=== PATIENT | male | born 1960 | race Two or more races ===

== ENCOUNTER 2018-11-09 20:32 | Emergency (ER) | payer SELFPAY ==
[~2018-11-09] VITALS: Ht 162.6 cm; Wt 64.0 kg
[2018-11-10 02:39] LABS: BASOPHILS % 0.4 % (0.0-2.0); EOSINOPHILS % 0.1 % (0.0-5.0); HEMATOCRIT. 45.3 % (42.0-52.0); HEMOGLOBIN. 15.5 g/dL (14.0-18.0); LYMPHOCYTES % 10.7 % (20.0-50.0); MEAN CORPUSCULAR HEMOGLOBIN 31.2 pg (28.0-32.0); MEAN CORPUSCULAR VOLUME 91.4 fL (80.0-94.0); MEAN PLATELET VOLUME 9.7 fl (7.4-10.4); MONOCYTES % 11.4 % (2.0-8.0); NEUTROPHILS % 77.4 % (40.0-76.0); PLATELET 167 x1000/uL (130-400); RED BLOOD CELL COUNT 4.95 mill/uL (4.7-6.1); RED CELL DISTRIBUTION WIDTH 17.6 % (11.6-14.6)
[2018-11-10 02:46] LABS: CHLORIDE 94 mEq/L (98-107)
[2018-11-10] MEDS ORDERED: CHLORDIAZEPOXIDE 25MG CAPSULE PO ONE (03:30)
[2018-11-10 06:11] VITALS: BP 136/84
== END 2018-11-10 06:28 | disposition home or self-care (01) ==
LOC: ER 20:32
DX: F10.20 Alcohol dependence, uncomplicated (principal); Y90.9 Presence of alcohol in blood, level not specified; F17.210 Nicotine dependence, cigarettes, uncomplicated
CPT/HCPCS: 36415; 80053; 84484; 85025; 99283; 99406; Z7610

== ENCOUNTER 2020-04-12 14:15 | Emergency (ER) | payer MEDICAID ==
[~2020-04-12] VITALS: Ht 170.2 cm; Wt 70.0 kg
[2020-04-12 14:17] VITALS: BP 123/86
[2020-04-12] MEDS ORDERED: SODIUM CHLORIDE 0.9% 1,000 ML IV ONE (15:00)
== END 2020-04-12 17:15 | disposition home or self-care (01) ==
LOC: ER 14:15
DX: F10.229 Alcohol dependence with intoxication, unspecified (principal); Y90.0 Blood alcohol level of less than 20 mg/100 ml
CPT/HCPCS: 99283

== ENCOUNTER 2021-07-16 07:41 | Inpatient (IN) | payer MEDICAID ==
[~2021-07-16] VITALS: Ht 162.6 cm; Wt 59.4 kg
[2021-07-16] VITALS (28 sets, daily range): BP systolic 69–135; BP diastolic 46–92
[2021-07-16 08:38] LABS: BASOPHILS % 0.9 % (0.0-2.0); EOSINOPHILS % 4.7 % (0.0-5.0); HEMATOCRIT. 41.1 % (42.0-52.0); LYMPHOCYTES % 13.5 % (20.0-50.0); MEAN CORPUSCULAR HEMOGLOBIN 28.5 pg (28.0-32.0); MEAN CORPUSCULAR VOLUME 83.6 fL (80.0-94.0); MEAN PLATELET VOLUME 9.1 fl (7.4-10.4); MONOCYTES % 8.7 % (2.0-8.0); NEUTROPHILS % 72.2 % (40.0-76.0); PLATELET 259 x1000/uL (130-400); RED BLOOD CELL COUNT 4.91 mill/uL (4.7-6.1)
[2021-07-16 08:44] LABS: CHLORIDE 98 mEq/L (98-107)
[2021-07-16 10:16] LABS: INR 1.2; PROTHROMBIN TIME 12.7 sec (9.6-11.0)
[2021-07-16] MEDS ORDERED: DEXAMETHASONE 4MG/ML 1ML VIAL IV ONE (11:45)
[2021-07-16] MEDS ORDERED: MORPHINE SULFATE 2 MG/ML CPJ (NOT FOR IM USE) IV ONE (11:45)
[2021-07-16] MEDS ORDERED: THROMBIN (BOVINE) 5000 UNITS/VIAL TOP ONE (11:59)
[2021-07-16] MEDS ORDERED: GENTAMICIN SULF 40MG/ML 2ML VIAL ONE (11:59)
[2021-07-16] MEDS ORDERED: LIDOCAINE HCL/EPINEPHRINE 1%-EPI 1:100,000 30 ML VIAL INFIL ONE (11:59)
[2021-07-16] MEDS ORDERED: SODIUM CHLORIDE 0.9% 2,000 ML ONE (11:59)
[2021-07-16] MEDS ORDERED: SODIUM CHLORIDE 0.9% INJ 10ML FLUSH IVF ONE (11:59)
[2021-07-16] MEDS ORDERED: LACTATED RINGERS 3,000 ML IV ONE (12:00)
[2021-07-16] MEDS ORDERED: ROCURONIUM BROMIDE 10MG/ML VIAL 5ML IV ONE (12:41)
[2021-07-16] MEDS ORDERED: MIDAZOLAM HCL 2 MG/2 ML VIAL ONE (12:41)
[2021-07-16] MEDS ORDERED: NEOSTIGMINE METHYLSULFATE 1MG/ML 10 ML VIAL ONE (12:41)
[2021-07-16] MEDS ORDERED: FENTANYL CITRATE/PF 50MCG/ML 2ML VIAL ONE (12:41)
[2021-07-16] MEDS ORDERED: GLYCOPYRROLATE 0.2 MG/ML 2ML VIAL ONE ×2 (12:41→14:34)
[2021-07-16] MEDS ORDERED: PROPOFOL 200MG/20ML VIAL IV ONE (12:41)
[2021-07-16] MEDS ORDERED: ONDANSETRON HCL 4MG/2ML INJ ONE (13:17)
[2021-07-16] MEDS ORDERED: DEXAMETHASONE 4MG/ML 1ML VIAL ONE (13:17)
[2021-07-16] MEDS ORDERED: CEFAZOLIN SODIUM 1000MG/VIAL ONE (13:34)
[2021-07-16] MEDS ORDERED: LIDOCAINE HCL/PF 1% 10 MG/ML 5ML VIAL ONE (13:34)
[2021-07-16] MEDS ORDERED: SODIUM CHLORIDE 0.9% 10ML VIAL ONE (13:34)
[2021-07-16] MEDS ORDERED: MEPERIDINE HCL/PF 25MG/ML CPJ IV PRN (13:45)
[2021-07-16] MEDS ORDERED: ONDANSETRON HCL 4MG/2ML INJ IV PRN (13:45)
[2021-07-16] MEDS ORDERED: NICARDIPINE 100 MG in SODIUM CHLORIDE 0.9% 60 ML IV PRN ×2 (14:45→15:00)
[2021-07-16] MEDS: LABETALOL 5MG/ML SYR 20 MG/4 ML SYRINGE IV PRN ×2 (14:54→15:16)
[2021-07-16] MEDS ORDERED: MAGNESIUM/ALUMINUM HYDROXIDE/SIMETHICONE 30ML UDC PO PRN (15:15)
[2021-07-16] MEDS ORDERED: DEXTROSE 50% WATER 50ML SYRINGE IV PRN (15:15)
[2021-07-16] MEDS ORDERED: NALOXONE HCL 0.4MG/ML VIAL IV PRN (15:15)
[2021-07-16] MEDS: HYDROMORPHONE HCL/PF 2MG/ML CPJ IV PRN ×2 (15:34→16:05)
[2021-07-16] MEDS ORDERED: VANCOMYCIN 750MG PREMIX 150 ML IV SCH (16:00)
[2021-07-16] MEDS: DEXT 5%/LACTATED RINGERS 1,000 ML IV SCH (16:04)
[2021-07-16] MEDS: BLOOD SUGAR DIAGNOSTIC STRIP TEST SCH ×2 (17:00→20:29)
[2021-07-16] MEDS: MORPHINE SULFATE 4 MG/ML CPJ (NOT FOR IM USE) IV PRN ×2 (18:16→21:28)
[2021-07-16] MEDS: INSULIN LISPRO 100 UNITS/ML SUBCUT SCH ×2 (19:12→20:33)
[2021-07-16] MEDS: VANCOMYCIN 750 MG in DEXT 5% WATER 250 ML IV SCH (20:23)
[2021-07-17] VITALS (97 sets, daily range): BP systolic 63–143; BP diastolic 20–94
[2021-07-17] MEDS: DEXT 5%/LACTATED RINGERS 1,000 ML IV SCH ×2 (01:06→09:40)
[2021-07-17] MEDS: MORPHINE SULFATE 4 MG/ML CPJ (NOT FOR IM USE) IV PRN ×3 (01:06→18:35)
[2021-07-17 01:12] LABS: CLARITY URINE CLOUDY (CLEAR); COLOR URINE YELLOW (YELLOW); KETONES URINE NEGATIVE (NEGATIVE); LEUKOCYTE ESTERASE URINE 2+ (NEGATIVE); NITRITE URINE NEGATIVE (NEGATIVE); OCCULT BLOOD URINE 3+ (NEGATIVE); PH URINE 5.5 (4.5-8.0); PROTEIN URINE NEGATIVE (NEGATIVE); SPECIFIC GRAVITY URINE 1.022 (1.005-1.030); UROBILINOGEN URINE 0.2 E.U./dL (0.2-1.0)
[2021-07-17 01:43] LABS: *AMPHETAMINES SCREEN URINE NEGATIVE (NEGATIVE); *BARBITURATES SCREEN URINE NEGATIVE (NEGATIVE); *BENZODIAZEPINES SCREEN URINE PRESUMTIVE POSITIVE (NEGATIVE); *COCAINE SCREEN URINE NEGATIVE (NEGATIVE); METHADONE URINE SCREEN NEGATIVE (NEGATIVE); OPIATES URINE SCREEN PRESUMTIVE POSITIVE (NEGATIVE)
[2021-07-17 01:44] LABS: CANNABINOID URINE SCREEN NEGATIVE (NEGATIVE); PHENCYCLIDINE URINE SCREEN NEGATIVE (NEGATIVE)
[2021-07-17] MEDS: VANCOMYCIN 750 MG in DEXT 5% WATER 250 ML IV SCH ×3 (03:21→20:56)
[2021-07-17] MEDS: BLOOD SUGAR DIAGNOSTIC STRIP TEST SCH ×4 (05:48→20:52)
[2021-07-17 06:10] LABS: CHLORIDE 100 mEq/L (98-107)
[2021-07-17 06:13] LABS: HEMATOCRIT. 33.3 % (42.0-52.0); HEMOGLOBIN. 11.3 g/dL (14.0-18.0); MEAN CORPUSCULAR HEMOGLOBIN 28.7 pg (28.0-32.0); MEAN CORPUSCULAR VOLUME 84.5 fL (80.0-94.0); MEAN PLATELET VOLUME 9.2 fl (7.4-10.4); PLATELET 212 x1000/uL (130-400); RED BLOOD CELL COUNT 3.94 mill/uL (4.7-6.1); RED CELL DISTRIBUTION WIDTH 14.1 % (11.6-14.6)
[2021-07-17 06:19] LABS: PHOSPHORUS 2.9 mg/dL (2.5-4.9)
[2021-07-17 06:21] LABS: T4 FREE 1.82 ng/dL (0.76-1.46)
[2021-07-17] MEDS: INSULIN LISPRO 100 UNITS/ML SUBCUT SCH ×4 (06:30→20:58)
[2021-07-17] MEDS: OMEPRAZOLE 20MG CAPSULE EXTENDED RELEASE PO SCH (06:30)
[2021-07-17] MEDS: HYDROCODONE/ACETAMINOPHEN 5/325MG TABLET PO PRN ×4 (06:53→20:59)
[2021-07-17] MEDS: MULTIVITAMINS,THER W-MINERALS TABLET PO SCH (08:15)
[2021-07-17] MEDS: FOLIC ACID 1MG TABLET PO SCH (08:15)
[2021-07-17] MEDS: THIAMINE HCL 100MG TABLET PO SCH (08:15)
[2021-07-17 10:52] LABS: PLATELET ESTIMATE NORMAL
[2021-07-17] MEDS ORDERED: GADOTERATE MEGLUMINE 5 MMOL/10 ML VIAL IV ONE (12:07)
[2021-07-17] MEDS ORDERED: CEFTRIAXONE 1 G PREMIX 50 ML IV SCH (12:15)
[2021-07-17] MEDS: NICOTINE 14MG PATCH TD SCH (13:01)
[2021-07-17] MEDS: CEFTRIAXONE 1,000 MG in DEXTROSE 5% WATER 50 ML IV SCH (13:08)
[2021-07-18 02:18] LABS: CHLORIDE 103 mEq/L (98-107)
[2021-07-18] MEDS: VANCOMYCIN 750 MG in DEXT 5% WATER 250 ML IV SCH (03:31)
[2021-07-18 03:34] VITALS: BP 126/74
[2021-07-18] MEDS: HYDROCODONE/ACETAMINOPHEN 5/325MG TABLET PO PRN ×2 (03:34→13:20)
[2021-07-18] MEDS: OMEPRAZOLE 20MG CAPSULE EXTENDED RELEASE PO SCH (06:58)
[2021-07-18] MEDS: MORPHINE SULFATE 4 MG/ML CPJ (NOT FOR IM USE) IV PRN ×4 (07:22→20:14)
[2021-07-18] MEDS: INSULIN LISPRO 100 UNITS/ML SUBCUT SCH ×4 (07:29→21:00)
[2021-07-18] MEDS: BLOOD SUGAR DIAGNOSTIC STRIP TEST SCH ×4 (07:32→21:00)
[2021-07-18 08:00] VITALS: BP 123/78
[2021-07-18] MEDS: THIAMINE HCL 100MG TABLET PO SCH (08:52)
[2021-07-18] MEDS: FOLIC ACID 1MG TABLET PO SCH (08:52)
[2021-07-18] MEDS: MULTIVITAMINS,THER W-MINERALS TABLET PO SCH (08:52)
[2021-07-18] MEDS: NICOTINE 14MG PATCH TD SCH (08:53)
[2021-07-18 11:11] LABS: BASOPHILS % 0.1 % (0.0-2.0); EOSINOPHILS % 2.2 % (0.0-5.0); HEMATOCRIT. 34.9 % (42.0-52.0); HEMOGLOBIN. 11.7 g/dL (14.0-18.0); LYMPHOCYTES % 10.8 % (20.0-50.0); MEAN CORPUSCULAR HEMOGLOBIN 28.3 pg (28.0-32.0); MEAN CORPUSCULAR VOLUME 84.3 fL (80.0-94.0); MEAN PLATELET VOLUME 9.1 fl (7.4-10.4); MONOCYTES % 5.5 % (2.0-8.0); NEUTROPHILS % 81.4 % (40.0-76.0); PLATELET 221 x1000/uL (130-400); RED BLOOD CELL COUNT 4.14 mill/uL (4.7-6.1); RED CELL DISTRIBUTION WIDTH 13.9 % (11.6-14.6)
[2021-07-18 12:00] VITALS: BP 127/73
[2021-07-18 12:05] LABS: CHLORIDE 101 mEq/L (98-107)
[2021-07-18] MEDS: CEFTRIAXONE 1,000 MG in DEXTROSE 5% WATER 50 ML IV SCH (13:16)
[2021-07-18] MEDS ORDERED: VANCOMYCIN 750MG PREMIX 150 ML IV SCH (15:00)
[2021-07-18 16:00] VITALS: BP 137/84
[2021-07-18] MEDS: INSULIN GLARGINE 100 UNITS/ML SUBCUT SCH (22:00)
[2021-07-18] MEDS: ZOLPIDEM TARTRATE 5MG TABLET PO PRN (22:32)
[2021-07-19] MEDS: MORPHINE SULFATE 4 MG/ML CPJ (NOT FOR IM USE) IV PRN ×3 (05:10→17:51)
[2021-07-19] MEDS: FAMOTIDINE 20MG TABLET PO SCH ×2 (06:26→21:35)
[2021-07-19] MEDS: BLOOD SUGAR DIAGNOSTIC STRIP TEST SCH ×4 (06:27→21:41)
[2021-07-19 06:37] LABS: BASOPHILS % 0.3 % (0.0-2.0); EOSINOPHILS % 4.5 % (0.0-5.0); HEMATOCRIT. 36.1 % (42.0-52.0); HEMOGLOBIN. 12.3 g/dL (14.0-18.0); LYMPHOCYTES % 12.1 % (20.0-50.0); MEAN CORPUSCULAR HEMOGLOBIN 28.6 pg (28.0-32.0); MEAN CORPUSCULAR VOLUME 84.3 fL (80.0-94.0); MEAN PLATELET VOLUME 9.5 fl (7.4-10.4); MONOCYTES % 5.1 % (2.0-8.0); PLATELET 207 x1000/uL (130-400); RED BLOOD CELL COUNT 4.29 mill/uL (4.7-6.1); RED CELL DISTRIBUTION WIDTH 13.7 % (11.6-14.6)
[2021-07-19 07:52] LABS: CHLORIDE 98 mEq/L (98-107)
[2021-07-19 08:00] VITALS: BP 127/87
[2021-07-19] MEDS: MULTIVITAMINS,THER W-MINERALS TABLET PO SCH (09:15)
[2021-07-19] MEDS: FOLIC ACID 1MG TABLET PO SCH (09:15)
[2021-07-19] MEDS: THIAMINE HCL 100MG TABLET PO SCH (09:15)
[2021-07-19] MEDS: INSULIN LISPRO 100 UNITS/ML SUBCUT SCH ×4 (09:35→21:40)
[2021-07-19 12:00] VITALS: BP 147/94
[2021-07-19] MEDS: CEFTRIAXONE 1,000 MG in DEXTROSE 5% WATER 50 ML IV SCH (13:14)
[2021-07-19] MEDS: NICOTINE 14MG PATCH TD SCH (13:15)
[2021-07-19] MEDS ORDERED: MAGNESIUM CITRATE 300ML SOLUTION PO ONE (13:30)
[2021-07-19 16:00] VITALS: BP 150/96
[2021-07-19] MEDS: CLONIDINE 0.1MG TABLET PO PRN (17:50)
[2021-07-19 20:00] VITALS: BP 105/79
[2021-07-19] MEDS: INSULIN GLARGINE 100 UNITS/ML SUBCUT SCH (21:40)
[2021-07-19] MEDS: HYDROCODONE/ACETAMINOPHEN 5/325MG TABLET PO PRN (23:59)
[2021-07-20] VITALS: BP 119/79
[2021-07-20 04:00] VITALS: BP 105/68
[2021-07-20 06:00] LABS: BASOPHILS % 0.3 % (0.0-2.0); EOSINOPHILS % 5.3 % (0.0-5.0); HEMATOCRIT. 33.6 % (42.0-52.0); HEMOGLOBIN. 11.3 g/dL (14.0-18.0); LYMPHOCYTES % 12.5 % (20.0-50.0); MEAN CORPUSCULAR HEMOGLOBIN 28.3 pg (28.0-32.0); MEAN PLATELET VOLUME 9.4 fl (7.4-10.4); MONOCYTES % 5.5 % (2.0-8.0); NEUTROPHILS % 76.4 % (40.0-76.0); PLATELET 190 x1000/uL (130-400)
[2021-07-20 06:13] LABS: CHLORIDE 96 mEq/L (98-107)
[2021-07-20] MEDS: BLOOD SUGAR DIAGNOSTIC STRIP TEST SCH ×4 (07:39→21:32)
[2021-07-20] MEDS: FAMOTIDINE 20MG TABLET PO SCH ×2 (07:40→20:47)
[2021-07-20 08:00] VITALS: BP 133/86
[2021-07-20] MEDS: MULTIVITAMINS,THER W-MINERALS TABLET PO SCH (08:39)
[2021-07-20] MEDS: NICOTINE 14MG PATCH TD SCH (08:40)
[2021-07-20] MEDS: THIAMINE HCL 100MG TABLET PO SCH (08:40)
[2021-07-20] MEDS: FOLIC ACID 1MG TABLET PO SCH (08:40)
[2021-07-20] MEDS: HYDROCODONE/ACETAMINOPHEN 5/325MG TABLET PO PRN (08:44)
[2021-07-20] MEDS: INSULIN LISPRO 100 UNITS/ML SUBCUT SCH ×4 (08:49→21:31)
[2021-07-20 12:00] VITALS: BP 126/85
[2021-07-20] MEDS: CEFTRIAXONE 1,000 MG in DEXTROSE 5% WATER 50 ML IV SCH (13:00)
[2021-07-20] MEDS ORDERED: HYDROCODONE/ACETAMINOPHEN 5/325MG TABLET PO PRN (15:00)
[2021-07-20 16:00] VITALS: BP 116/87
[2021-07-20] MEDS ORDERED: IOHEXOL-300 100 ML BOTTLE ONE (16:24)
[2021-07-20 20:00] VITALS: BP 107/71
[2021-07-20] MEDS: MORPHINE SULFATE 4 MG/ML CPJ (NOT FOR IM USE) IV PRN ×2 (20:48→22:48)
[2021-07-20] MEDS: HYDROCODONE/ACETAMINOPHEN 10/325MG TABLET PO PRN (20:59)
[2021-07-20] MEDS: INSULIN GLARGINE 100 UNITS/ML SUBCUT SCH (22:00)
[2021-07-21] VITALS: BP 99/60
[2021-07-21 04:00] VITALS: BP 106/76
[2021-07-21] MEDS: FAMOTIDINE 20MG TABLET PO SCH ×2 (05:59→20:16)
[2021-07-21] MEDS: BLOOD SUGAR DIAGNOSTIC STRIP TEST SCH ×4 (05:59→21:19)
[2021-07-21 07:41] LABS: BASOPHILS % 0.5 % (0.0-2.0); EOSINOPHILS % 7.9 % (0.0-5.0); HEMATOCRIT. 33.4 % (42.0-52.0); HEMOGLOBIN. 11.4 g/dL (14.0-18.0); LYMPHOCYTES % 14.4 % (20.0-50.0); MEAN CORPUSCULAR HEMOGLOBIN 28.5 pg (28.0-32.0); MEAN CORPUSCULAR VOLUME 83.4 fL (80.0-94.0); MEAN PLATELET VOLUME 8.9 fl (7.4-10.4); MONOCYTES % 11.9 % (2.0-8.0); NEUTROPHILS % 65.3 % (40.0-76.0); PLATELET 207 x1000/uL (130-400); RED CELL DISTRIBUTION WIDTH 13.8 % (11.6-14.6)
[2021-07-21] MEDS: INSULIN LISPRO 100 UNITS/ML SUBCUT SCH ×4 (07:50→21:18)
[2021-07-21 07:54] LABS: CHLORIDE 95 mEq/L (98-107)
[2021-07-21 08:00] VITALS: BP 139/83
[2021-07-21] MEDS: MULTIVITAMINS,THER W-MINERALS TABLET PO SCH (09:18)
[2021-07-21] MEDS: FOLIC ACID 1MG TABLET PO SCH (09:18)
[2021-07-21] MEDS: THIAMINE HCL 100MG TABLET PO SCH (09:18)
[2021-07-21] MEDS: NICOTINE 14MG PATCH TD SCH (09:18)
[2021-07-21] MEDS: CLONIDINE 0.1MG TABLET PO PRN (10:58)
[2021-07-21] MEDS: ACETAMINOPHEN 325MG TABLET PO PRN ×2 (10:59→21:59)
[2021-07-21 12:00] VITALS: BP 165/94
[2021-07-21] MEDS: CEFTRIAXONE 1,000 MG in DEXTROSE 5% WATER 50 ML IV SCH (13:32)
[2021-07-21 16:00] VITALS: BP 147/89
[2021-07-21 17:51] LABS: FOLIC ACID (FOLATE) SERUM 19.5 ng/mL (>5.38)
[2021-07-21 17:54] LABS: VITAMIN B12 SERUM 1047 pg/mL (211-911)
[2021-07-21 20:00] VITALS: BP 142/85
[2021-07-21] MEDS: HYDROCODONE/ACETAMINOPHEN 5/325MG TABLET PO PRN (20:19)
[2021-07-21] MEDS: INSULIN GLARGINE 100 UNITS/ML SUBCUT SCH (21:17)
[2021-07-22] VITALS: BP 140/83
[2021-07-22] MEDS: HYDROCODONE/ACETAMINOPHEN 10/325MG TABLET PO PRN ×4 (02:13→23:39)
[2021-07-22 04:00] VITALS: BP 117/82
[2021-07-22] MEDS: FAMOTIDINE 20MG TABLET PO SCH ×2 (05:19→21:10)
[2021-07-22] MEDS: ACETAMINOPHEN 325MG TABLET PO PRN ×2 (05:25→13:34)
[2021-07-22 06:29] LABS: BASOPHILS % 0.4 % (0.0-2.0); EOSINOPHILS % 7.3 % (0.0-5.0); HEMATOCRIT. 32.8 % (42.0-52.0); HEMOGLOBIN. 11.1 g/dL (14.0-18.0); LYMPHOCYTES % 15.1 % (20.0-50.0); MEAN CORPUSCULAR HEMOGLOBIN 28.4 pg (28.0-32.0); MEAN CORPUSCULAR VOLUME 84.2 fL (80.0-94.0); MEAN PLATELET VOLUME 9.2 fl (7.4-10.4); MONOCYTES % 13.9 % (2.0-8.0); NEUTROPHILS % 63.3 % (40.0-76.0); PLATELET 230 x1000/uL (130-400); RED CELL DISTRIBUTION WIDTH 14.1 % (11.6-14.6)
[2021-07-22] MEDS: BLOOD SUGAR DIAGNOSTIC STRIP TEST SCH ×4 (06:32→21:28)
[2021-07-22] MEDS: INSULIN LISPRO 100 UNITS/ML SUBCUT SCH ×4 (06:32→21:12)
[2021-07-22 06:37] LABS: INR 1.1; PROTHROMBIN TIME 11.9 sec (9.6-11.0)
[2021-07-22 06:55] LABS: CHLORIDE 97 mEq/L (98-107)
[2021-07-22 08:00] VITALS: BP 124/87
[2021-07-22] MEDS: LACTULOSE 20G/30ML UDC PO SCH ×3 (09:00→17:00)
[2021-07-22] MEDS: MULTIVITAMINS,THER W-MINERALS TABLET PO SCH (10:57)
[2021-07-22] MEDS: FOLIC ACID 1MG TABLET PO SCH (10:57)
[2021-07-22] MEDS: NICOTINE 14MG PATCH TD SCH (10:58)
[2021-07-22] MEDS: THIAMINE HCL 100MG TABLET PO SCH (10:58)
[2021-07-22 12:00] VITALS: BP 144/88
[2021-07-22] MEDS: CEFTRIAXONE 1,000 MG in DEXTROSE 5% WATER 50 ML IV SCH (13:35)
[2021-07-22 16:00] VITALS: BP 133/83
[2021-07-22 19:49] LABS: TOTAL IRON BINDING CAPACITY 242 ug/dL (250-450)
[2021-07-22 20:00] VITALS: BP 131/79
[2021-07-22] MEDS: INSULIN GLARGINE 100 UNITS/ML SUBCUT SCH (21:11)
[2021-07-22] MEDS: ZOLPIDEM TARTRATE 5MG TABLET PO PRN (23:39)
[2021-07-23 04:00] VITALS: BP 124/79
[2021-07-23 06:40] LABS: BASOPHILS % 0.5 % (0.0-2.0); EOSINOPHILS % 5.9 % (0.0-5.0); HEMATOCRIT. 35.5 % (42.0-52.0); LYMPHOCYTES % 10.9 % (20.0-50.0); MEAN CORPUSCULAR HEMOGLOBIN 28.4 pg (28.0-32.0); MEAN CORPUSCULAR VOLUME 84.2 fL (80.0-94.0); MEAN PLATELET VOLUME 8.3 fl (7.4-10.4); MONOCYTES % 13.9 % (2.0-8.0); NEUTROPHILS % 68.8 % (40.0-76.0); PLATELET 235 x1000/uL (130-400); RED BLOOD CELL COUNT 4.21 mill/uL (4.7-6.1); RED CELL DISTRIBUTION WIDTH 14.1 % (11.6-14.6)
[2021-07-23 07:18] LABS: CHLORIDE 95 mEq/L (98-107)
[2021-07-23] MEDS: INSULIN LISPRO 100 UNITS/ML SUBCUT SCH ×4 (07:50→21:00)
[2021-07-23] MEDS: BLOOD SUGAR DIAGNOSTIC STRIP TEST SCH ×4 (07:57→21:22)
[2021-07-23 08:00] VITALS: BP 112/78
[2021-07-23] MEDS: MULTIVITAMINS,THER W-MINERALS TABLET PO SCH (09:30)
[2021-07-23] MEDS: THIAMINE HCL 100MG TABLET PO SCH (09:30)
[2021-07-23] MEDS: FOLIC ACID 1MG TABLET PO SCH (09:31)
[2021-07-23] MEDS: FAMOTIDINE 20MG TABLET PO SCH ×2 (09:31→20:20)
[2021-07-23] MEDS: NICOTINE 14MG PATCH TD SCH (09:32)
[2021-07-23] MEDS: HYDROCODONE/ACETAMINOPHEN 10/325MG TABLET PO PRN (10:32)
[2021-07-23 12:00] VITALS: BP 138/85
[2021-07-23] MEDS: HYDROCODONE/ACETAMINOPHEN 5/325MG TABLET PO PRN (13:47)
[2021-07-23 16:00] VITALS: BP 128/90
[2021-07-23] MEDS: ACETAMINOPHEN 325MG TABLET PO PRN (20:20)
[2021-07-23] MEDS: INSULIN GLARGINE 100 UNITS/ML SUBCUT SCH (21:22)
[2021-07-24] MEDS: HYDROCODONE/ACETAMINOPHEN 10/325MG TABLET PO PRN ×2 (03:20→09:38)
[2021-07-24] MEDS: BLOOD SUGAR DIAGNOSTIC STRIP TEST SCH ×4 (07:20→21:23)
[2021-07-24] MEDS: INSULIN LISPRO 100 UNITS/ML SUBCUT SCH ×4 (07:50→21:00)
[2021-07-24 08:00] VITALS: BP 125/81
[2021-07-24] MEDS: MULTIVITAMINS,THER W-MINERALS TABLET PO SCH (09:38)
[2021-07-24] MEDS: NICOTINE 14MG PATCH TD SCH (09:38)
[2021-07-24] MEDS: FOLIC ACID 1MG TABLET PO SCH (09:38)
[2021-07-24] MEDS: FAMOTIDINE 20MG TABLET PO SCH ×2 (09:38→21:22)
[2021-07-24] MEDS: THIAMINE HCL 100MG TABLET PO SCH (09:44)
[2021-07-24 12:00] VITALS: BP 87/62
[2021-07-24 15:32] LABS: HEMATOCRIT. 35.6 % (42.0-52.0); HEMOGLOBIN. 11.9 g/dL (14.0-18.0); MEAN CORPUSCULAR HEMOGLOBIN 27.9 pg (28.0-32.0); MEAN CORPUSCULAR VOLUME 83.1 fL (80.0-94.0); MEAN PLATELET VOLUME 8.1 fl (7.4-10.4); PLATELET 238 x1000/uL (130-400); RED BLOOD CELL COUNT 4.28 mill/uL (4.7-6.1)
[2021-07-24 15:49] LABS: CHLORIDE 96 mEq/L (98-107)
[2021-07-24] MEDS: GABAPENTIN 300MG CAPSULE PO SCH ×2 (15:50→21:22)
[2021-07-24 16:00] VITALS: BP 135/81
[2021-07-24 17:26] LABS: PLATELET ESTIMATE NORMAL
[2021-07-24] MEDS: HYDROCODONE/ACETAMINOPHEN 5/325MG TABLET PO PRN (18:53)
[2021-07-24 20:00] VITALS: BP 111/78
[2021-07-24] MEDS: INSULIN GLARGINE 100 UNITS/ML SUBCUT SCH (21:22)
[2021-07-25] VITALS: BP 119/77
[2021-07-25 04:00] VITALS: BP 130/82
[2021-07-25] MEDS: GABAPENTIN 300MG CAPSULE PO SCH ×3 (07:03→22:02)
[2021-07-25] MEDS: HYDROCODONE/ACETAMINOPHEN 10/325MG TABLET PO PRN (07:04)
[2021-07-25] MEDS: BLOOD SUGAR DIAGNOSTIC STRIP TEST SCH ×4 (07:07→20:39)
[2021-07-25 07:53] LABS: BASOPHILS % 0.5 % (0.0-2.0); EOSINOPHILS % 4.9 % (0.0-5.0); HEMATOCRIT. 35.1 % (42.0-52.0); LYMPHOCYTES % 7.3 % (20.0-50.0); MEAN CORPUSCULAR HEMOGLOBIN 28.1 pg (28.0-32.0); MEAN CORPUSCULAR VOLUME 82.4 fL (80.0-94.0); MEAN PLATELET VOLUME 8.2 fl (7.4-10.4); MONOCYTES % 12.5 % (2.0-8.0); NEUTROPHILS % 74.8 % (40.0-76.0); PLATELET 261 x1000/uL (130-400); RED BLOOD CELL COUNT 4.25 mill/uL (4.7-6.1); RED CELL DISTRIBUTION WIDTH 14.3 % (11.6-14.6)
[2021-07-25 08:00] VITALS: BP 112/68
[2021-07-25 08:14] LABS: CHLORIDE 97 mEq/L (98-107)
[2021-07-25] MEDS: MULTIVITAMINS,THER W-MINERALS TABLET PO SCH (09:16)
[2021-07-25] MEDS: FOLIC ACID 1MG TABLET PO SCH (09:16)
[2021-07-25] MEDS: NICOTINE 14MG PATCH TD SCH (09:16)
[2021-07-25] MEDS: THIAMINE HCL 100MG TABLET PO SCH (09:16)
[2021-07-25] MEDS: FAMOTIDINE 20MG TABLET PO SCH ×2 (09:16→20:27)
[2021-07-25] MEDS: INSULIN LISPRO 100 UNITS/ML SUBCUT SCH ×4 (09:23→21:35)
[2021-07-25 12:00] VITALS: BP 123/74
[2021-07-25] MEDS: HYDROCODONE/ACETAMINOPHEN 5/325MG TABLET PO PRN (12:22)
[2021-07-25 16:00] VITALS: BP 111/72
[2021-07-25] MEDS: ACETAMINOPHEN 325MG TABLET PO PRN (18:41)
[2021-07-25] MEDS: CEFEPIME 2,000 MG in DEXT 5% WATER 100 ML IV SCH (18:41)
[2021-07-25 20:00] VITALS: BP 113/77
[2021-07-25] MEDS: INSULIN GLARGINE 100 UNITS/ML SUBCUT SCH ×2 (22:00→22:33)
[2021-07-26] VITALS: BP 122/77
[2021-07-26] MEDS: HYDROCODONE/ACETAMINOPHEN 5/325MG TABLET PO PRN ×3 (02:09→15:25)
[2021-07-26] MEDS: ACETAMINOPHEN 325MG TABLET PO PRN ×2 (03:48→22:38)
[2021-07-26 04:00] VITALS: BP 124/74
[2021-07-26 05:48] LABS: HEMOGLOBIN. 11.6 g/dL (14.0-18.0); MEAN CORPUSCULAR HEMOGLOBIN 28.3 pg (28.0-32.0); MEAN PLATELET VOLUME 8.5 fl (7.4-10.4); PLATELET 241 x1000/uL (130-400); RED CELL DISTRIBUTION WIDTH 14.5 % (11.6-14.6)
[2021-07-26 05:51] LABS: CHLORIDE 96 mEq/L (98-107)
[2021-07-26] MEDS: GABAPENTIN 300MG CAPSULE PO SCH ×3 (06:22→22:05)
[2021-07-26] MEDS: CEFEPIME 2,000 MG in DEXT 5% WATER 100 ML IV SCH ×2 (06:22→18:27)
[2021-07-26] MEDS: BLOOD SUGAR DIAGNOSTIC STRIP TEST SCH ×4 (07:20→21:00)
[2021-07-26] MEDS: INSULIN LISPRO 100 UNITS/ML SUBCUT SCH ×4 (07:50→22:41)
[2021-07-26 08:00] VITALS: BP 127/82
[2021-07-26] MEDS: THIAMINE HCL 100MG TABLET PO SCH (09:11)
[2021-07-26] MEDS: MULTIVITAMINS,THER W-MINERALS TABLET PO SCH (09:11)
[2021-07-26] MEDS: FOLIC ACID 1MG TABLET PO SCH (09:11)
[2021-07-26] MEDS: FAMOTIDINE 20MG TABLET PO SCH ×2 (09:11→22:05)
[2021-07-26] MEDS: NICOTINE 14MG PATCH TD SCH (09:16)
[2021-07-26 11:29] LABS: PLATELET ESTIMATE NORMAL
[2021-07-26 12:00] VITALS: BP 130/81
[2021-07-26 16:00] VITALS: BP 132/72
[2021-07-26 20:00] VITALS: BP 109/76
[2021-07-26] MEDS: INSULIN GLARGINE 100 UNITS/ML SUBCUT SCH (22:42)
[2021-07-27] VITALS: BP 110/74
[2021-07-27] MEDS ORDERED: NALOXONE HCL 0.4MG/ML VIAL IV PRN (00:15)
[2021-07-27] MEDS: HYDROCODONE/ACETAMINOPHEN 5/325MG TABLET PO PRN ×4 (00:26→22:50)
[2021-07-27 04:00] VITALS: BP 141/89
[2021-07-27] MEDS: ACETAMINOPHEN 325MG TABLET PO PRN ×3 (04:31→20:35)
[2021-07-27] MEDS: GABAPENTIN 300MG CAPSULE PO SCH ×3 (05:33→21:38)
[2021-07-27] MEDS: CEFEPIME 2,000 MG in DEXT 5% WATER 100 ML IV SCH ×2 (05:33→18:06)
[2021-07-27 07:05] LABS: BASOPHILS % 0.6 % (0.0-2.0); EOSINOPHILS % 4.3 % (0.0-5.0); HEMATOCRIT. 35.6 % (42.0-52.0); HEMOGLOBIN. 11.9 g/dL (14.0-18.0); LYMPHOCYTES % 7.8 % (20.0-50.0); MEAN CORPUSCULAR HEMOGLOBIN 27.7 pg (28.0-32.0); MEAN CORPUSCULAR VOLUME 82.9 fL (80.0-94.0); MEAN PLATELET VOLUME 8.7 fl (7.4-10.4); MONOCYTES % 6.7 % (2.0-8.0); NEUTROPHILS % 80.6 % (40.0-76.0); PLATELET 242 x1000/uL (130-400); RED BLOOD CELL COUNT 4.29 mill/uL (4.7-6.1); RED CELL DISTRIBUTION WIDTH 14.1 % (11.6-14.6)
[2021-07-27] MEDS: INSULIN LISPRO 100 UNITS/ML SUBCUT SCH ×4 (07:22→21:40)
[2021-07-27] MEDS: BLOOD SUGAR DIAGNOSTIC STRIP TEST SCH ×4 (07:22→21:39)
[2021-07-27 07:23] LABS: CHLORIDE 95 mEq/L (98-107)
[2021-07-27 08:00] VITALS: BP 155/93
[2021-07-27] MEDS: NICOTINE 14MG PATCH TD SCH (09:41)
[2021-07-27] MEDS: FOLIC ACID 1MG TABLET PO SCH (09:41)
[2021-07-27] MEDS: MULTIVITAMINS,THER W-MINERALS TABLET PO SCH (09:41)
[2021-07-27] MEDS: FAMOTIDINE 20MG TABLET PO SCH ×2 (09:41→21:38)
[2021-07-27] MEDS: THIAMINE HCL 100MG TABLET PO SCH (09:41)
[2021-07-27 12:00] VITALS: BP 110/80
[2021-07-27 16:00] VITALS: BP 126/80
[2021-07-27 20:00] VITALS: BP 130/81
[2021-07-28] VITALS: BP 158/90
[2021-07-28] MEDS: CLONIDINE 0.1MG TABLET PO PRN (00:08)
[2021-07-28 04:00] VITALS: BP 134/83
[2021-07-28 06:00] LABS: BASOPHILS % 0.3 % (0.0-2.0); EOSINOPHILS % 3.7 % (0.0-5.0); HEMATOCRIT. 36.4 % (42.0-52.0); HEMOGLOBIN. 12.1 g/dL (14.0-18.0); LYMPHOCYTES % 7.6 % (20.0-50.0); MEAN CORPUSCULAR HEMOGLOBIN 27.4 pg (28.0-32.0); MEAN CORPUSCULAR VOLUME 82.7 fL (80.0-94.0); MEAN PLATELET VOLUME 9.1 fl (7.4-10.4); MONOCYTES % 6.7 % (2.0-8.0); NEUTROPHILS % 81.7 % (40.0-76.0); PLATELET 248 x1000/uL (130-400); RED CELL DISTRIBUTION WIDTH 14.4 % (11.6-14.6)
[2021-07-28] MEDS: GABAPENTIN 300MG CAPSULE PO SCH ×2 (06:01→14:54)
[2021-07-28] MEDS: HYDROCODONE/ACETAMINOPHEN 5/325MG TABLET PO PRN ×2 (06:04→14:55)
[2021-07-28] MEDS: CEFEPIME 2,000 MG in DEXT 5% WATER 100 ML IV SCH (06:05)
[2021-07-28] MEDS: BLOOD SUGAR DIAGNOSTIC STRIP TEST SCH (06:20)
[2021-07-28] MEDS: FAMOTIDINE 20MG TABLET PO SCH (06:20)
[2021-07-28 06:25] LABS: CHLORIDE 92 mEq/L (98-107)
[2021-07-28] MEDS: INSULIN LISPRO 100 UNITS/ML SUBCUT SCH ×2 (07:50→12:50)
[2021-07-28 08:00] VITALS: BP 119/74
[2021-07-28] MEDS: THIAMINE HCL 100MG TABLET PO SCH (08:59)
[2021-07-28] MEDS: NICOTINE 14MG PATCH TD SCH (08:59)
[2021-07-28] MEDS: FOLIC ACID 1MG TABLET PO SCH (08:59)
[2021-07-28] MEDS: MULTIVITAMINS,THER W-MINERALS TABLET PO SCH (09:00)
[2021-07-28 12:00] VITALS: BP 138/91
[2021-07-28] MEDS ORDERED: SODIUM CHLORIDE 0.9% 1,000 ML IV SCH (13:00)
[2021-07-28 16:37] VITALS: BP 136/91
[2021-07-28] MEDS ORDERED: MORPHINE SULFATE 2 MG/ML CPJ (NOT FOR IM USE) IV NR (17:00)
[2021-07-28 17:10] VITALS: BP 136/91
== END 2021-07-28 17:30 | disposition home or self-care (01) | DRG 304 ==
LOC: ER 07:41 → MICUNO 18:08 → 6EST 07-17 22:50
PROVIDERS: ADMIT Internal Medicine; ATTEND Internal Medicine
PROC: 0RG7071 Fusion of 2 to 7 Thoracic Vertebral Joints with Autologous Tissue Substitute, Posterior Approach, Posterior Column, Open Approach (ICD-10-PCS; principal; 2021-07-16)
PROC: 4A11X4G Monitoring of Peripheral Nervous Electrical Activity, Intraoperative, External Approach (ICD-10-PCS; 2021-07-16)
PROC: 01N80ZZ Release Thoracic Nerve, Open Approach (ICD-10-PCS; 2021-07-16)
DX: M48.54XA Collapsed vertebra, not elsewhere classified, thoracic region, initial encounter for fracture (principal); C79.51 Secondary malignant neoplasm of bone; C79.49 Secondary malignant neoplasm of other parts of nervous system; K59.2 Neurogenic bowel, not elsewhere classified; C79.71 Secondary malignant neoplasm of right adrenal gland; E87.1 Hypo-osmolality and hyponatremia; G82.20 Paraplegia, unspecified; S06.4X9A Epidural hemorrhage with loss of consciousness of unspecified duration, initial encounter; M48.061 Spinal stenosis, lumbar region without neurogenic claudication; M47.816 Spondylosis without myelopathy or radiculopathy, lumbar region; N30.00 Acute cystitis without hematuria; K86.1 Other chronic pancreatitis; E11.9 Type 2 diabetes mellitus without complications; E05.90 Thyrotoxicosis, unspecified without thyrotoxic crisis or storm; F17.210 Nicotine dependence, cigarettes, uncomplicated; M48.02 Spinal stenosis, cervical region; D64.9 Anemia, unspecified; G95.20 Unspecified cord compression; G83.14 Monoplegia of lower limb affecting left nondominant side; K59.00 Constipation, unspecified; N31.9 Neuromuscular dysfunction of bladder, unspecified; Z20.822 Contact with and (suspected) exposure to COVID-19; F10.10 Alcohol abuse, uncomplicated; X58.XXXA Exposure to other specified factors, initial encounter; Y93.89 Activity, other specified; Z80.9 Family history of malignant neoplasm, unspecified; Y92.89 Other specified places as the place of occurrence of the external cause; Y99.8 Other external cause status; F19.90 Other psychoactive substance use, unspecified, uncomplicated; M48.04 Spinal stenosis, thoracic region; C80.1 Malignant (primary) neoplasm, unspecified
CPT/HCPCS: 36415; 71260; 72070; 72100; 72141; 72146; 72148; 72157; 74177; 76000; 78306; 80048; 80053; 80076; 80202; 80305; 80320; 81003; 82140; 82378; 82607; 82728; 82746; 82962; 83036; 83540; 83550; 83735; 84100; 84145; 84153; 84439; 84443; 84484; 85025; 85044; 86301; 86850; 86900; 87426; 88305; 88331; 93005; 93970; 97110; 97112; 97162; 97166; 97530; 97535; 99291; A9503; A9577; C1713; C1893; J0690; J0692; J0696; J1100; J1170; J1580; J1815; J2250; J2270; J2405; J2704; J2710; J3010; J3370; J3490; J7030; J7040; J7060; J7120; Q9967; A4315; C1762; G0103; G0480